=== PATIENT | female | born 1980 | race Two or more races ===

== ENCOUNTER 2017-01-25 12:33 | Emergency (ER) | payer MEDICAID ==
[~2017-01-25] VITALS: Ht 152.4 cm; Wt 73.7 kg
[2017-01-25 12:35] VITALS: BP 132/77
[2017-01-25] MEDS ORDERED: IBUPROFEN 200 MG TABLET ONE (13:23)
[2017-01-25] MEDS ORDERED: IBUPROFEN 200 MG TABLET PO ONE (13:30)
== END 2017-01-25 15:23 | disposition home or self-care (01) ==
LOC: ED 15:17
DX: S82.62XA Displaced fracture of lateral malleolus of left fibula, initial encounter for closed fracture (principal); F17.210 Nicotine dependence, cigarettes, uncomplicated; W01.0XXA Fall on same level from slipping, tripping and stumbling without subsequent striking against object, initial encounter; Y93.89 Activity, other specified; Y92.89 Other specified places as the place of occurrence of the external cause; Y99.8 Other external cause status
CPT/HCPCS: 29515; 99284